=== PATIENT | female | born 1985 | race Two or more races ===

== ENCOUNTER → 2019-03-04 | Outpatient (CLI) | payer OTHER ==
--- NOTE | 2019-03-04 16:28 | KCIC ---
Three-view study lumbar spine Clinical indications: Lumbar disc disorder. Chronic back pain. FINDINGS: Transverse processes are intact. No compression fracture discitis or lytic process or anterolisthesis is evident. Mild degenerative endplate spurring is seen without significant disc space narrowing. IMPRESSION: No acute compression fracture. Mild degenerative endplate spurring. Electronically signed by: Joe Young MD (03/04/2019 4:25 PM) [id number]
--- NOTE | 2019-03-04 16:30 | KCIC ---
Three-view cervical spine series Clinical indications: Cervicalgia for years. No known injury. FINDINGS: No acute fracture or discitis or lytic process or prevertebral soft tissue swelling is evident. There is grade 1 anterolisthesis of C2-3 and C3-4. No significant degenerative disc space narrowing or endplate spurring is seen. There is straightening of the normal cervical lordosis which may be seen with muscle spasm. FINDINGS: Muscle spasm. Electronically signed by: Joe Young MD (03/04/2019 4:27 PM) [place] [id number]
--- NOTE | 2019-03-04 16:33 | KCIC ---
Indications: Arthralgia multiple joints. Fourth digit locks up. Two-view right hand study: No acute fracture or dislocation or lytic process is seen. Alignment is normal. There is a small marginal cyst of the dorsal aspect of the proximal epiphysis of the fourth middle phalanx. I doubt that this represents erosive arthropathy given the lack of significant arthritic change elsewhere. This may just represent a degenerative cyst therefore. IMPRESSION: Probable degenerative cyst of the fourth middle phalanx. No acute osseous abnormality. 2 view right wrist study: No acute fracture or dislocation or lytic process is evident. No significant arthritic change is seen. No erosive arthropathy is evident. Alignment is normal. IMPRESSION: No significant osseous abnormality. Electronically signed by: Joe Young MD (03/04/2019 4:30 PM) [id number]
== END | disposition home or self-care (01) ==
LOC: KCIC 08:53
PROVIDERS: ATTEND Internal Medicine
DX: M46.06 Spinal enthesopathy, lumbar region (principal); M62.838 Other muscle spasm; M79.641 Pain in right hand; M25.531 Pain in right wrist
CPT/HCPCS: 72040; 72100; 73100; 73120